=== PATIENT | male | born 1985 | race Caucasian/White ===

== ENCOUNTER 2018-04-30 14:16 | Inpatient (IN) | payer MEDICAID ==
[~2018-04-30] VITALS: Ht 180.3 cm; Wt 73.5 kg
[2018-04-30 14:16] VITALS: BP 135/82
--- NOTE | 2018-04-30 14:25 | NUR ---
[facility] with c/o witnessed tonic clonic for unknown time. Patient was found at [facility]. Per plug drill operator, patient was post itcal en route. GCS=14. On arrival, patient is aox4 to person, place, situation, and time but drowsy. Patient reports of use of marijuana but denies any other use of drugs. Patient found with needles on personal belongings. Patient diaphoretic. No oral or urine/bowel incontinence noted. Patient denies any hx of seizure.
--- NOTE | 2018-04-30 14:28 | NUR ---
PHYSICIAN AT BEDSIDE
[2018-04-30] MEDS ORDERED: NACL 0.9% 1,000 ML IV ONE (14:35)
--- NOTE | 2018-04-30 14:43 | NUR ---
PATEINT BEING TAKEN TO CT IN [facility]
[2018-04-30 14:51] LABS: BASOPHILS % (AUTO) 0.5 % (0.0-2.0); EOSINOPHILS # (AUTO) 0.1 K/uL (0-0.4); EOSINOPHILS % (AUTO) 0.7 % (0.0-4.0); HEMATOCRIT 50.9 % (36-52); HEMOGLOBIN 16.7 g/dL (12.0-18.0); LYMPHOCYTES # (AUTO) 2.5 K/uL (2.0-11.5); MEAN CORPUSCULAR HEMOGLOBIN 32 pg (27-31); MEAN CORPUSCULAR HGB CONC 33 g/dL (33-37); MEAN CORPUSCULAR VOLUME 96.3 fL (80-94); MONOCYTES # (AUTO) 0.5 K/uL (0.8-1.0); MONOCYTES % (AUTO) 6.4 % (1.7-9.3); NEUTROPHILS # (AUTO) 4.1 K/uL (1.8-7.7); NEUTROPHILS % (AUTO) 57.4 % (42.2-75.2); PLATELET COUNT (AUTO) 258 K/uL (140-450); RED BLOOD CELL COUNT(AUTO) 5.29 MIL/uL (4.20-6.10); WHITE BLOOD COUNT (AUTO) 7.1 K/uL (4.8-10.8)
[2018-04-30 15:02] LABS: ANION GAP 12.1 (8-16); CARBON DIOXIDE 27.7 mmol/L (21-32); CHLORIDE 104 mmol/L (98-107); CREATININE 1.1 mg/dL (0.7-1.3); GFR ARICAN-AMERICAN 101 mL/min (>90); GLUCOSE 167 mg/dL (74-106); POTASSIUM 3.8 mmol/L (3.5-5.1); SODIUM SERUM 140 mmol/L (136-145); UREA NITROGEN, BLOOD 16 mg/dL (7-18)
[2018-04-30 15:11] LABS: ALBUMIN 4.4 g/dL (3.4-5.0); ASPARTATE AMINOTRANSFERASE 17 U/L (15-37); TOTAL BILIRUBIN 0.5 mg/dL (0.0-1.0)
[2018-04-30 15:13] LABS: SALICYLATE < 2.8 mg/dL (2.8-20.0)
[2018-04-30 15:14] LABS: ACETAMINOPHEN < 0.5 ug/ml (10-30)
--- NOTE | 2018-04-30 15:30 | NUR ---
PATIENT ENCOURAGED TO PEE. REFUESING CATHETER AT THIS TIME.
--- NOTE | 2018-04-30 16:00 | NUR ---
PATIENT STILL REFUESING TO PEE. MADE AWARE.
[2018-04-30] MEDS ORDERED: DOCUSATE SODIUM 100 MG GELCAP PO PRN (17:45)
[2018-04-30] MEDS ORDERED: ACETAMINOPHEN 325 MG TAB PO PRN (17:45)
[2018-04-30] MEDS ORDERED: ONDANSETRON 4 MG/2 ML VIAL IM/IVP PRN (17:45)
[2018-04-30] MEDS ORDERED: LORazepam 2 MG/ML VIAL IVP PRN (17:45)
[2018-04-30] MEDS ORDERED: ZOLPIDEM 5 MG TAB PO PRN (17:45)
[2018-04-30] MEDS ORDERED: HYDROcodone/APAP 5/325 MG 1 TAB TAB PO PRN (17:45)
[2018-04-30] MEDS ORDERED: LORazepam 2 MG/ML VIAL IM/IVP PRN (17:45)
--- NOTE | 2018-04-30 18:12 | NUR ---
RECEIVED PT REPORT FROM ER NURSE VASILE AT BEDSIDE. PT IS DROWSY, OX4. DX: POSSIBLE SEIZURE. PT ADMITS THAT HE USED MARIJUANA AND BEER IN THE MORNING. DENIES USING OTHER DRUGS. MRSA SWAB DONE, VITALS TAKEN, LEFT BRACHIAL BP 106/65. O2 SAT 100%, RR 16, HR 64, TEMP 97.1 TEMPORAL. DENIES PAIN, NO S/S OF DISTRESS ON ROOM AIR. ORIENTED PT TO ROOM. SEIZURE PRECAUTIONS AND FALL PRECAUTIONS PROTOCOL INITIATED. SIDE RAILS PADDED, YELLOW SOCK, SIGN AND FALL RISK WRIST BAND IN PLACE. CALL LIGHT WITHIN REACH, ON TELE MONITORING.
--- NOTE | 2018-04-30 18:13 | NUR ---
gave report to tele nurse isaak. patient stable at time of transfer.
[2018-04-30] MEDS ORDERED: MECLIZINE 25 MG TAB PO PRN (18:30)
[2018-04-30] MEDS: NACL 0.9% 1,000 ML IV SCH (18:50)
[2018-04-30] MEDS ORDERED: ALBUTEROL SULFATE/IPRATROPIU 3 ML SOL IH PRN (19:20)
--- NOTE | 2018-04-30 19:30 | NUR ---
ENDORSED PT TO CLASSIFIED ADVERTISING CLERK RN, PT IN STABLE CONDITION.
--- NOTE | 2018-04-30 19:31 | NUR ---
RECEIVED REPORT FROM DAY SHIFT NURSE. PT IN LYING IN BED. AAOX4. NO C/O PAIN OR SOB. ON ROOM AIR. SKIN INTACT. IV TO RIGHT AC #18G, NS AT 60 ML/HR INFUSING WELL. SKIN INTACT. SEIZURE AND FALL PRECAUTIONS IN PLACE. CALL LIGHT WITHIN REACH.
[2018-04-30 20:00] VITALS: BP 112/71
--- NOTE | 2018-04-30 20:10 | NUR ---
PT REFUSED ORTHOSTATIC V/S. EXPLAINED TO PT THE PROCEDURE. PT STATED " I WANT TO REST".
[2018-04-30 20:45] LABS: CHOL/HDL RATIO 2.4 (1-4.5); MAGNESIUM 2.2 mg/dL (1.8-2.4); PHOSPHORUS 4.1 mg/dL (2.5-4.9); THYROID STIMULATING HORMONE 1.16 uIU/mL (0.34-3.74)
[2018-04-30 20:56] LABS: PROTHROMBIN TIME 10.1 secs (10.8-13.4)
--- NOTE | 2018-04-30 21:00 | NUR ---
PT REFUSED SCDS. PT IS AMBULATORY.
[2018-04-30] MEDS ORDERED: LACTULOSE 20 GM/30 ML UDC PO ONE (21:05)
[2018-05-01] VITALS: BP 120/59
--- NOTE | 2018-05-01 | NUR ---
PT SLEEPING BUT EASILY AROUSABLE. RESP EVEN AND UNLABORED. NO SEIZURE ACTIVITY NOTED.
--- NOTE | 2018-05-01 02:45 | NUR ---
PT SLEEPING. NO S/S OF RESP DISTRESS. NO S/S OF PAIN OR DISCOMFORT.
[2018-05-01 04:00] VITALS: BP 116/68
--- NOTE | 2018-05-01 04:10 | NUR ---
URINE COLLECTED FOR URINALYSIS PROFILE AND UDS. URINE SENT TO LAB.
[2018-05-01 04:37] LABS: BARBITURATE, URINE NEG. ng/ml (NEG <=200); BENZODIAZEPINE, URINE NEG. ng/mL (NEG <=200); CANNABINOID, URINE POS. ng/mL (NEG <=50); COCAINE, URINE NEG. ng/mL (NEG <=300); OPIATE, URINE POS. ng/mL (NEG <=2000); PHENCYCLIDINE SCREEN,URINE NEG. ng/mL (NEG <=25)
[2018-05-01 04:55] LABS: APPEARANCE,URINE CLEAR (CLEAR); BILIRUBIN,URINE NEGATIVE (NEGATIVE); BLOOD, URINE NEGATIVE (NEGATIVE); COLOR,URINE YELLOW (YELLOW); LEUKOCYTE ESTERASE ,URINE NEGATIVE (NEGATIVE); NITRITE, URINE NEGATIVE (NEGATIVE); UGLUCOSE NEGATIVE (NEGATIVE)
[2018-05-01] MEDS ORDERED: DEXTROSE 50% 50 ML SYR IVP PRN (05:25)
[2018-05-01] MEDS ORDERED: INSULIN LISPRO SLIDING SCALE 100 UNITS/ML VIAL SUBQ PRN (05:25)
[2018-05-01] MEDS: BLOOD GLUCOSE MONITORING 1 DEV DEV FS SCH ×2 (06:07→11:54)
--- NOTE | 2018-05-01 06:22 | NUR ---
CHECKED BLOOD SUGAR 72. PT STATED HE'S HUNGRY. SNACK PROVIDED WITH APPLE JUICE. ALL NEEDS MET AT THIS TIME.
[2018-05-01 06:46] LABS: BASOPHILS % (AUTO) 0.1 % (0.0-2.0); EOSINOPHILS # (AUTO) 0.1 K/uL (0-0.4); EOSINOPHILS % (AUTO) 0.4 % (0.0-4.0); HEMATOCRIT 43.9 % (36-52); HEMOGLOBIN 14.3 g/dL (12.0-18.0); LYMPHOCYTES # (AUTO) 1.9 K/uL (2.0-11.5); LYMPHOCYTES % (AUTO) 13.6 % (20.5-51.1); MEAN CORPUSCULAR HEMOGLOBIN 31 pg (27-31); MEAN CORPUSCULAR HGB CONC 33 g/dL (33-37); MEAN CORPUSCULAR VOLUME 94.8 fL (80-94); MONOCYTES # (AUTO) 0.8 K/uL (0.8-1.0); MONOCYTES % (AUTO) 5.5 % (1.7-9.3); NEUTROPHILS % (AUTO) 80.4 % (42.2-75.2); PLATELET COUNT (AUTO) 218 K/uL (140-450); RED BLOOD CELL COUNT(AUTO) 4.63 MIL/uL (4.20-6.10); RED CELL DISTRIBUTION WIDTH 12.7 % (11.6-13.7); WHITE BLOOD COUNT (AUTO) 13.7 K/uL (4.8-10.8)
[2018-05-01 07:04] LABS: ANION GAP 10.9 (8-16); CARBON DIOXIDE 27.8 mmol/L (21-32); CREATININE 0.7 mg/dL (0.7-1.3); POTASSIUM 3.7 mmol/L (3.5-5.1)
--- NOTE | 2018-05-01 07:05 | NUR ---
ENDORSED PT TO DAY SHIFT NURSE. PT IN STABLE CONDITION.
--- NOTE | 2018-05-01 07:10 | NUR ---
RECEIVED PT FROM LOGISTICS PROGRAM MANAGER NURSEPHOENIX, PT IS AWAKE AND LYING ON THE BED WITH SIDE RAILS UP AND PADDED, CALL LIGHT WITHIN REACH, PT DENIES PAIN AT THIS TIME, SEIZURE PRECAUTION ENFORCED,PT HAS AN IV LINE ON THE RT AC G. 18 WITH NS INFUSING AT 60ML/HR, INTACT. NO SIGN OF DISTRESS NOTED. WILL CONTINUE TO MONITOR PT.
[2018-05-01 07:22] LABS: MAGNESIUM 1.9 mg/dL (1.8-2.4); PHOSPHORUS 3.9 mg/dL (2.5-4.9)
[2018-05-01 08:00] VITALS: BP 121/75
--- NOTE | 2018-05-01 08:43 | NUR ---
PT IS AWAKE NOW AND JUST FINISHED EATING HIS BREAKFAST, MEDICATION GIVEN VIA SUBQ, IN THE ABDOMEN, PT TOLERATED IT AND NO SIGN OF DISTRESS NOTED. WILL CONTINUE TO MONITOR PT.
[2018-05-01] MEDS ORDERED: MULTIVITAMIN 1 TAB PO SCH (09:00)
[2018-05-01] MEDS ORDERED: FOLIC ACID 1 MG TAB PO SCH (09:00)
[2018-05-01] MEDS ORDERED: THIAMINE 100 MG TAB PO SCH (09:00)
[2018-05-01] MEDS ORDERED: HYDROCHLOROTHIAZIDE 25 MG TAB PO SCH (09:00)
--- NOTE | 2018-05-01 10:02 | NUR ---
ECHO IS BEING DONE TO PT NOW.
[2018-05-01] MEDS ORDERED: LACTULOSE 20 GM/30 ML UDC PO SCH (11:00)
[2018-05-01] MEDS: NACL 0.9% 1,000 ML IV SCH (11:18)
--- NOTE | 2018-05-01 11:24 | NUR ---
PATIENT HAS BEEN SCREENED AND CATEGORIZED MODERATE NUTRITION RISK. PATIENT WILL BE SEEN WITHIN 3-5 DAYS OF ADMISSION. 05/03/18 05/05/18 KENTRELL PORTER MBA, RD
--- NOTE | 2018-05-01 11:25 | NUR ---
PT IS AWAKE AND SEATED ON THE BED, BLOOD GLUCOSE CHECK DONE AND RESULT IS 114, ORAL MEDICATION GIVEN AND PT TOLERATED IT. WILL CONTINUE TO MONITOR PT.
[2018-05-01] MEDS ORDERED: LIB25 PO ×2 (11:26→11:55)
[2018-05-01] MEDS ORDERED: FOLI0.8T PO ×2 (11:29→11:56)
[2018-05-01] MEDS ORDERED: MULT-153 PO (11:30)
[2018-05-01] MEDS ORDERED: LACT10SO1 PO (11:53)
[2018-05-01] MEDS ORDERED: MULT-2253 PO (11:58)
[2018-05-01 12:00] VITALS: BP 115/80
[2018-05-01] MEDS ORDERED: chlordiazePOXIDE 25 MG CAP PO SCH (13:00)
--- NOTE | 2018-05-01 14:15 | NUR ---
DISCHARGED PT VIA WHEELCHAIR ACCOMPANIED BY [employer]IE [employer]ES, DISCHARGED TEACHINGS AND MEDICATION INSTRUCTIONS GIVEN AND PT VERBALIZED UNDERSTANDING, IV LINE AND ARM BANDS REMOVED, PT WAS GIVEN A BUS PASS AND IS STABLE AT THIS TIME.
== END 2018-05-01 14:15 | disposition home or self-care (01) | DRG 48 ==
LOC: MED 14:16 → MTU 17:42
PROVIDERS: ADMIT General Practice; ATTEND General Practice
DX: G90.9 Disorder of the autonomic nervous system, unspecified (principal); K72.90 Hepatic failure, unspecified without coma; R56.9 Unspecified convulsions; E11.65 Type 2 diabetes mellitus with hyperglycemia; I10 Essential (primary) hypertension; F17.210 Nicotine dependence, cigarettes, uncomplicated; F11.10 Opioid abuse, uncomplicated; F15.10 Other stimulant abuse, uncomplicated; F12.10 Cannabis abuse, uncomplicated; Z86.73 Personal history of transient ischemic attack (TIA), and cerebral infarction without residual deficits; Z71.51 Drug abuse counseling and surveillance of drug abuser; Z79.84 Long term (current) use of oral hypoglycemic drugs
CPT/HCPCS: 36415; 70450; 71045; 80048; 80053; 80305; 81003; 82140; 82550; 82948; 83036; 83690; 83735; 84100; 84134; 84443; 84484; 85025; 85610; 85730; 93005; 93880; 96360; 99285; G0480; G0482; J1644; J1815; J7030; Q0092